=== PATIENT | female | born 1935 | race Caucasian/White ===

== ENCOUNTER → 2016-11-11 | Outpatient (CLI) | payer MEDICARE, OTHER ==
[~2016-11-11] MED LIST: ACT35T PO; CALC-793 PO; FLUT16SP22 NS; OLME40TA14 PO; OMEP20TA2 PO; PNT40TEC PO; SLOW-MAG64 M1 PO
--- NOTE | 2016-11-11 19:52 | Diagnostic Imaging Report ---
Bilateral screening mammogram The current study was also evaluated with a Computer Aided Detection (CAD) system. Indication: Screening. No current complaints stated on the questionnaire. COMPARISON: 11/05/15. FINDINGS: The breasts are composed of heterogeneously dense parenchyma which may decrease mammographic sensitivity. Scattered benign-appearing calcifications seen. Allowing for technique and positional differences, no suspicious change is seen. IMPRESSION: Dense breasts with no definite change. ACR BI-RADS Category 2: Benign findings. Result letter will be mailed to the patient. Note: At least 10% of breast cancer is not imaged by mammography. Dictated by: Dictated on workstation # [id number]
== END ==
LOC: RAD 09:15
PROVIDERS: ATTEND Internal Medicine
DX: Z12.31 Encounter for screening mammogram for malignant neoplasm of breast (principal)
CPT/HCPCS: 77067

== ENCOUNTER → 2016-11-27 | Outpatient (CLI) | payer MEDICARE, OTHER ==
[~2016-11-27] VITALS: Ht 152.4 cm; Wt 48.3 kg
[~2016-11-27] MED LIST changes: +DENOSUMAB 60 MG/1 ML (PROLIA) SQ ONE
[2016-11-27 09:25] VITALS: BP 139/67
== END ==
LOC: SDC 09:01
PROVIDERS: ATTEND Internal Medicine
DX: M81.0 Age-related osteoporosis without current pathological fracture (principal)
CPT/HCPCS: 96372

== ENCOUNTER → 2017-05-28 | Outpatient (CLI) | payer MEDICARE, OTHER ==
[~2017-05-28] VITALS: Ht 152.4 cm; Wt 48.3 kg
[~2017-05-28] MED LIST changes: +DENOSUMAB 60 MG/1 ML (PROLIA) SQ NR; -DENOSUMAB 60 MG/1 ML (PROLIA) SQ ONE
[2017-05-28 15:16] VITALS: BP 160/66
== END ==
LOC: SDC 13:14
PROVIDERS: ATTEND Internal Medicine
DX: M81.0 Age-related osteoporosis without current pathological fracture (principal)
CPT/HCPCS: 96372

== ENCOUNTER → 2017-11-16 | Outpatient (CLI) | payer MEDICARE, OTHER ==
[~2017-11-16] MED LIST changes: -DENOSUMAB 60 MG/1 ML (PROLIA) SQ NR
--- NOTE | 2017-11-16 13:28 | Diagnostic Imaging Report ---
INDICATION: Digital mammogram bilateral screening with 3-D tomosynthesis. This study was compared to the prior exam of 11/11/16, 11/05/15 and 10/30/14. At this time, there are no current complaints. The current study was also evaluated with a Computer Aided Detection (CAD) system. FINDINGS: The fibroglandular tissue in both breasts is dense. This does limit the sensitivity of this exam. Overall, there does not appear to have been any significant change when compared to the prior study. No primary or secondary sign of malignancy is noted. 3D tomographic images fail to show any sign of malignancy. IMPRESSION: There is no radiographic evidence for malignancy. ACR BI-RADS Category 1: Negative. Result letter will be mailed to the patient. Note: At least 10% of breast cancer is not imaged by mammography. Dictated by: Dictated on workstation # [id number]
== END ==
LOC: RAD 09:48
PROVIDERS: ATTEND Internal Medicine
DX: Z12.31 Encounter for screening mammogram for malignant neoplasm of breast (principal)
CPT/HCPCS: 77067

== ENCOUNTER → 2017-11-26 | Outpatient (CLI) | payer MEDICARE, OTHER ==
[~2017-11-26] VITALS: Ht 152.4 cm; Wt 48.3 kg
[~2017-11-26] MED LIST changes: +DENOSUMAB 60 MG/1 ML (PROLIA) SQ ONE
[2017-11-26 13:49] VITALS: BP 141/72
--- NOTE | 2017-12-01 11:10 | Physician Query-Final Dx ---
MIKHAIL SAM 12/01/17 1110: Clinic Account Progress/Dx Physician Query: Please give a diagnosis for the Prolia treatment thank you Date of Service November 26, 2017 at 12:57 STEFANIA MORALES MD 12/03/17 1054: Clinic Account Progress/Dx Physician Query: Please give diagnosis DIAGNOSIS: Diagnosis Osteoporosis MIKHAIL SAM December 01, 2017 11:10 STEFANIA MORALES MD December 03, 2017 10:54
== END ==
LOC: SDC 12:57
PROVIDERS: ATTEND Internal Medicine
DX: M81.0 Age-related osteoporosis without current pathological fracture (principal)
CPT/HCPCS: 96372

== ENCOUNTER → 2018-06-10 | Outpatient (CLI) | payer MEDICARE, OTHER ==
[~2018-06-10] VITALS: Ht 152.4 cm; Wt 48.3 kg
[2018-06-10 13:40] VITALS: BP 150/64
== END | disposition home or self-care (01) ==
LOC: SDC 13:02
PROVIDERS: ATTEND Internal Medicine
DX: M81.0 Age-related osteoporosis without current pathological fracture (principal)
CPT/HCPCS: 96372

== ENCOUNTER → 2018-11-23 | Outpatient (CLI) | payer MEDICARE, OTHER ==
[~2018-11-23] MED LIST changes: -DENOSUMAB 60 MG/1 ML (PROLIA) SQ ONE
--- NOTE | 2018-11-23 15:42 | Diagnostic Imaging Report ---
INDICATION: Routine screening. COMPARISON: 11/16/2017 and 11/11/2016. TECHNIQUE: 2D and 3D bilateral screening mammography was performed with CAD. FINDINGS: Both breasts are heterogeneously dense, limiting the sensitivity of mammography. Benign calcifications are noted. No mass or malignant appearing microcalcifications are seen. The axillae are unremarkable. IMPRESSION: No mammographic features suspicious for malignancy are identified. ACR BI-RADS Category 2: Benign findings. Result letter will be mailed to the patient. Note: At least 10% of breast cancer is not imaged by mammography. Dictated by: Dictated on workstation # [id number]
== END ==
LOC: RAD 11:13
PROVIDERS: ATTEND Internal Medicine
DX: Z12.31 Encounter for screening mammogram for malignant neoplasm of breast (principal)
CPT/HCPCS: 77067

== ENCOUNTER → 2018-12-09 | Outpatient (CLI) | payer MEDICARE, OTHER ==
[~2018-12-09] VITALS: Ht 152.4 cm; Wt 48.3 kg
[~2018-12-09] MED LIST changes: +DENOSUMAB 60 MG/1 ML (PROLIA) SQ ONE
[2018-12-09 13:31] VITALS: BP 173/78
== END ==
LOC: SDC 13:01
PROVIDERS: ATTEND Internal Medicine
DX: M81.0 Age-related osteoporosis without current pathological fracture (principal)
CPT/HCPCS: 96372

== ENCOUNTER 2019-06-12 13:00 | Outpatient (CLI) | payer MEDICARE, OTHER ==
[~2019-06-12] VITALS: Ht 152.4 cm; Wt 48.3 kg
[~2019-06-12 13:00] MED LIST changes: -DENOSUMAB 60 MG/1 ML (PROLIA) SQ ONE
[2019-06-12] MEDS ORDERED: DENOSUMAB 60 MG/1 ML (PROLIA) SQ ONE (13:15)
[2019-06-12 13:24] VITALS: BP 167/74
== END 2019-06-12 13:24 | disposition home or self-care (01) ==
LOC: SDC 13:00
PROVIDERS: ATTEND Internal Medicine
DX: M81.0 Age-related osteoporosis without current pathological fracture (principal)
CPT/HCPCS: 96372

== ENCOUNTER 2019-12-11 12:58 | Outpatient (CLI) | payer MEDICARE, OTHER ==
[2019-12-11 13:06] VITALS: BP 151/88
[2019-12-11] MEDS ORDERED: DENOSUMAB 60 MG/1 ML (PROLIA) SQ ONE (13:15)
== END 2019-12-11 13:16 | disposition home or self-care (01) ==
LOC: SDC 12:58
PROVIDERS: ATTEND Internal Medicine
DX: M81.0 Age-related osteoporosis without current pathological fracture (principal)
CPT/HCPCS: 96372

== ENCOUNTER 2020-02-08 18:21 | Emergency (ER) | payer MEDICARE, OTHER ==
[~2020-02-08] VITALS: Ht 152 cm; Wt 49.0 kg
--- NOTE | 2020-02-08 18:54 | ED Back Pain ---
General Stated Complaint: BACK PAIN History of Present Illness Date Seen by Provider: Feb 08, 2020 Time Seen by Provider: 18:30 Initial Comments 85-year-old female presents for mid back pain on the right that started 02/02/20. She was seen by her primary care provider's office and started on meloxicam. She states her symptoms being transient, pain got worse at 1330 today. She tried a lidocaine patch with no improvement in her symptoms. She denies any falls, injuries, twisting or turning, or lifting anything. No pain or radicular symptoms in LEs. Denies bowel or bladder incontinence or retention. She has chronic scoliosis and osteoporosis. Location: Lumbar Spine, T-Spine (T10 on right) Timing/Duration: 5-6 Days Severity: Moderate (8/10) Pain/Injury Location: None Associated Symptoms: denies symptoms; No numbness in legs/feet, No tingling in legs/feet, No sensory/motor loss; lower back pain; No loss of bladder control, No loss of bowel control Allergies and Home Medications Allergies Coded Allergies: Hydrocodone (Verified Allergy, Unknown, 04/22/10) acetaminophen (Verified Allergy, Unknown, 04/22/10) Home Medications Calcium/Vitamin D 1 Each Tablet, 1 EACH PO DAILY, (Reported) Fluticasone Propionate 16 Gm Naspr, 16 GM NS BID PRN, (Reported) 50 MCG Olmesartan Medoxomil 40 Mg Tablet, 40 MG PO DAILY, (Reported) Pantoprazole Sodium 40 Mg Tablet.dr, 1 TAB PO DAILY, (Reported) Patient Home Medication List Home Medication List Reviewed: Yes Review of Systems Constitutional: no symptoms reported, see HPI Musculoskeletal: see HPI, back pain (T and L Spine on right) Past Pugqlnf-Tusuuj-Norhxl Hx Past Med/Social Hx: Reviewed and Corrections made Patient Social History Alcohol Use: Rarely Uses Alcohol Beverage of Choice: Wine Recreational Drug Use: No Recent Foreign Travel: No Contact w/Someone Who Travel: No Recent Hopitalizations: Yes Immunizations Up To Date Date of Pneumonia Vaccine: Aug 04, 2012 Past Medical History Reproductive Disorders: No Physical Exam Vital Signs Vital Signs - First Documented 02/08/20 18:58 Temp 36.7 Pulse 78 Resp 18 B/P (MAP) 183/110 (134) Pulse Ox 95 O2 Delivery Room Air Capillary Refill : Height, Weight, BMI Height: 5'0.00" Weight: 106lbs. 8.0oz. 48.939045ql; 20.8 BMI Method:Stated General Appearance: No Apparent Distress, WD/WN Neck: Full Range of Motion, Normal Inspection, Non Tender, Supple Cardiovascular: Regular Rate, Rhythm, No Edema, No Murmur, Normal Peripheral Pulses Respiratory: Chest Non Tender, Lungs Clear, Normal Breath Sounds Gastrointestinal: Normal Bowel Sounds, Non Tender, Soft Back: Decreased Range of Motion, Muscle Spasm, Vertebral Tenderness (T10 right. ), Other (Marked T and L Scoliosis, right scapula prominent. ) Extremity: Normal Capillary Refill, Normal Inspection, Normal Range of Motion Neurologic/Psychiatric: Alert, Oriented x3, No Motor/Sensory Deficits, Normal Mood/Affect Skin: Normal Color, Warm/Dry Progress/Results/Core Measures Results/Orders My Orders Orders - LEVY LAY Tramadol Tablet (Ultram Tablet) (02/08/20 18:45) Thoracic Spine, 2 Views Only (02/08/20 18:44) Lumbar Spine - 2-3 Views (02/08/20 18:44) Rx-Tramadol Hcl (Rx-Ultram) (02/08/20 20:17) Medications Given in ED Current Medications Medications Dose Ordered Sig/Devora Route Start Time Stop Time Status Last Admin Dose Admin Tramadol HCl 50 mg ONCE ONCE PO 02/08/20 18:45 02/08/20 18:46 DC 02/08/20 19:35 50 MG Vital Signs/I&O 02/08/20 02/08/20 18:58 20:30 Temp 36.7 36.8 Pulse 78 67 Resp 18 20 B/P (MAP) 183/110 (134) 174/85 Pulse Ox 95 100 O2 Delivery Room Air Room Air Progress Progress Note : Time: 18:30 Progress Note Patient seen and evaluated, will obtain x-rays of the thoracic and lumbar spine. Tramadol for pain. 1914 Patient reports improvement in pain. Warm blanket to low back. 1999 Xray results reviewed with patient. Discharge instructions and return precautions reviewed. All questions answered. Diagnostic Imaging Diagonstic Imaging: Xray Plain Films/CT/US/NM/MRI: other (T and L Spine) Comments NAME: MARYAMYOMAR Vargas MED REC#: [id number] PT STATUS: REG ER : 1935 PHYSICIAN: LEVY LAY ADMIT DATE: 02/08/20/ER Draft Date of Exam:02/08/20 LUMBAR SPINE - 2-3 VIEWS CLINICAL INDICATION: Patient with right-sided mid to lower back pain. Patient has scoliosis with constant ache, but states this pain is different. EXAMS: 1: X-ray of the thoracic spine, 2 views. 2: X-ray of the lumbar spine, 2 views. COMPARISON: X-ray of the right hip dated 04/16/2011. FINDINGS: There are multiple air-filled loops of intestine overlying the lumbar spine limiting evaluation of bony detail. There is osteopenia involving the thoracic and lumbar spine. There is grossly 81 degrees of levorotoscoliosis of the thoracolumbar spine. There is associated hypertrophic spurs and facet arthropathy involving the lumbar spine. There is also kyphosis of the thoracolumbar spine region as well. There is loss of height involving the L2-L3 vertebra associated with the scoliosis. The lateral view of the thoracic spine is limited by overlying anatomical structures and scoliosis. Air-filled hiatal hernia is noted. There are degenerative spurs involving the thoracic spine. There is no definite acute fracture of the thoracic spine, but evaluation is limited. IMPRESSION: 1: Very limited evaluation of the thoracic and lumbar spine due to overlapping anatomical structures, osteopenia, and severe kypho levorotoscoliosis of the thoracolumbar spine. 2: Although there is no gross acute fracture seen, it cannot be excluded given the limitations of these exams. If there is continued concern for fracture, MRI of the thoracic and lumbar spine would better evaluate for acute fracture given the osteopenia. 3: There appears to be loss of height involving the L2 and L3 vertebra associated with the scoliosis, but this may be chronic. Dictated on workstation # [id number] Dict: 02/08/201929 Trans: 02/08/20 194 [facility] [id number] Interpreted by: TA DUNHAM MD Electronically signed by: Reviewed: Reviewed by Me Departure Impression Primary Impression: Thoracic back pain Qualified Codes: M54.6 - Pain in thoracic spine Additional Impression: Scoliosis Qualified Codes: M41.9 - Scoliosis, unspecified Disposition: 01 HOME, SELF-CARE Condition: Improved Departure-Patient Inst. Decision time for Depature: 20:00 Referrals: STEFANIA WALSH MD (PCP/Family) Primary Care Physician Patient Instructions: Low Back Pain (DC) Add. Discharge Instructions: Alternate heat and ice to your low back as needed. Take the tramadol 1 tablet every 8 hours as needed for pain. Continue to take your home medications. Follow-up with Dr. Walsh to schedule an MRI of your back. Return to the emergency department for new, urgent health care needs. Copy Copies To 1: STEFANIA WALSH MD, AMY ARNP Feb 08, 2020 18:54
--- NOTE | 2020-02-08 19:43 | Diagnostic Imaging Report ---
CLINICAL INDICATION: Patient with right-sided mid to lower back pain. Patient has scoliosis with constant ache, but states this pain is different. EXAMS: 1: X-ray of the thoracic spine, 2 views. 2: X-ray of the lumbar spine, 2 views. COMPARISON: X-ray of the right hip dated 04/16/2011. FINDINGS: There are multiple air-filled loops of intestine overlying the lumbar spine limiting evaluation of bony detail. There is osteopenia involving the thoracic and lumbar spine. There is grossly 81 degrees of levorotoscoliosis of the thoracolumbar spine. There is associated hypertrophic spurs and facet arthropathy involving the lumbar spine. There is also kyphosis of the thoracolumbar spine region as well. There is loss of height involving the L2-L3 vertebra associated with the scoliosis. The lateral view of the thoracic spine is limited by overlying anatomical structures and scoliosis. Air-filled hiatal hernia is noted. There are degenerative spurs involving the thoracic spine. There is no definite acute fracture of the thoracic spine, but evaluation is limited. IMPRESSION: 1: Very limited evaluation of the thoracic and lumbar spine due to overlapping anatomical structures, osteopenia, and severe kypho levorotoscoliosis of the thoracolumbar spine. 2: Although there is no gross acute fracture seen, it cannot be excluded given the limitations of these exams. If there is continued concern for fracture, MRI of the thoracic and lumbar spine would better evaluate for acute fracture given the osteopenia. 3: There appears to be loss of height involving the L2 and L3 vertebra associated with the scoliosis, but this may be chronic. Dictated by: Dictated on workstation # [id number]
--- OUTSIDE RECORDS SUMMARY | 2020-02-08 20:09 | XMS REPORT ---
Author Author Phobious head bucker ONE [facility] Phobious banner [facility] ONE [facility] Address [address] [address] Care Team Providers Care Ambulance Paramedic Name Role Phone ROBERTO YOUNG Unavailable Unavailable ROBERTO YOUNG Unavailable STEFANIA MORALES MD Unavailable Unavailable PCP, NONE Unavailable Unavailable STEFANIA MORALES MD Unavailable Unavailable STEFANIA MORALES PCP Unavailable Unavailable Unavailable Unavailable Unavailable Unavailable Unavailable Unavailable Unavailable Unavailable Allergies The data below is from unstructured sourcesNo Known Allergies No Information No Information Encounters Encounter Date Encounter Type Encounter Diagnosis Care Provider Facility Start: Patient encounter STEFANIA MORALES MD [facility] 12-11-2019 [facility] End: 12-11-2019 Start: Patient encounter STEFANIA MORALES MD [place] [facility] 06-12-2019 [facility] End: 06-12-2019 Start: Patient encounter NONE PCP [facility] 04-12-2019 procedure [facility] ([id number]) Start: Patient encounter STEFANIA MORALES MD [facility] 12-09-2018 [facility] ([id number]) Start: Patient encounter STEFANIA MORALES MD [facility] 12-09-2018 [facility] ([id number]) Start: Patient encounter STEFANIA MORALES MD [facility] 11-23-2018 [facility] ([id number]) Start: Patient encounter NONE PCP [facility] 11-10-2018 procedure [facility] ([id number]) Start: Patient encounter NONE PCP [facility] 09-06-2018 [facility] ([id number]) Start: Patient encounter STEFANIA MORALES MD [facility] ([id number]) 06-10-2018 procedure Start: [facility] Encounter for ROBERTO YOUNG [facility] 04-20-2018 immunization Start: Patient encounter STEFANIA MORALES MD [facility] ([id number]) 11-26-2017 procedure Start: Patient encounter 11-16-2017 procedure Start: Patient encounter STEFANIA MORALES MD [facility] ([id number]) 05-28-2017 procedure Start: [facility] Encounter for ROBERTO YOUNG [facility] 04-19-2017 immunization Start: Patient encounter STEFANIA MORALES MD [facility] ([id number]) 11-27-2016 procedure Start: Patient encounter STEFANIA MORALES MD [facility] ([id number]) 11-11-2016 procedure Start: Patient encounter STEFANIA MORALES MD [facility] ([id number]) 05-29-2016 procedure Start: Patient encounter STEFANIA MORALES MD [facility] ([id number]) 11-27-2015 procedure Start: Patient encounter STEFANIA MORALES MD [facility] ([id number]) 11-05-2015 procedure Start: Patient encounter STEFANIA MORALES MD [facility] ([id number]) 05-29-2015 procedure Start: [facility] Encounter for ROBERTO YOUNG [facility] 05-01-2015 immunization Start: Patient encounter STEFANIA MORALES MD [facility] ([id number]) 11-27-2014 procedure Start: Patient encounter STEFANIA MORALES MD [facility] (20430) 10-30-2014 procedure Start: Patient encounter STEFANIA MORALES MD [facility] (98706) 05-29-2014 procedure Patient encounter NA NA Not Available (0000 0) procedure Medical Equipment The data below is from unstructured sourcesNo Medical Equipment Information available Goals Date Patient Goal Desired Activity/St ate Immunizations Immunizatio Immunization Notes Care Provider Facility n Date 04-12-2019 influenza, seasonal, NA [facility] (25306) 11-10-2018 zoster vaccine NA NA [facility] recombinant [facility] (98837) 09-06-2018 zoster vaccine NA NA [facility] recombinant [facility] (05883) 04-20-2018 influenza, seasonal, NA NA [facility] ; [facility] - Translations: [[facility] IMMUNIZATION ADMIN] ([id number]) 04-20-2018 influenza, injectable, ROBERTO YOUNG [facility] quadrivalent, Other Phone: [facility] preservative free [place] ([id number]) 05-28-2017 STEFANIA MORALES [place] [facility] Work Phone: Hospital ([id number]) 04-19-2017 influenza, injectable, NA NA Not [facility] (55254) quadrivalent, preservative free Interventions No Information Medications Medication Drug Dates Sig Sig (Original) Class(es) (Normalized) Calcium Citrate / Calcium/Vitamin D Active 1 ORAL Daily Vitamin D (1 source) Payers Date Payer Normalized Payer [id number] Plan of Treatment No Information Problems Problem Problem Date Last Documented Episodic/Chr Provider Classificati Recorded Date onic on Osteoporosis Age-related osteoporosis without Chronic STEFANIA MORALES (22 sources) current pathological fracture ; MD Translations: [Osteoporosis, unspecified] Other Encounter for screening mammogram Episodic STEFANIA MORALES screening for malignant neoplasm of breast ; MD for Translations: [Other screen ing suspected mammogram] conditions (not mental disorders or infectious disease) (11 sources) Procedures The data below is from unstructured sources Procedure Coding System Code Date SINGLE IMMUNIZATION ADMIN CPT-4 68814 May 01, 2015 PCV 13 CPT-4 48520 May 01, 2015 Procedure Date Ordered R esult Body Site FLULAVAL QUAD 0.5ML (6 MO AND UP) 2017Apr 20, 2018 SINGLE IMMUNIZATION ADMIN Apr 20, 2018 No procedure information available. Results The data below is from unstructured sourcesNo Known Results No Results No ResultsNo known relevant diagnostic tests and/or laboratory data.No known relevant diagnostic tests and/or laboratory data. Social History Date Type Detail Facility Start: No [place] [facility] 06-12-2019 [facility] ([id number]) Start: Yes [place] [facility] 05-28-2017 [facility] ([id number]) Start: Sex Assigned At Female [facility] 1935 [facility] ([id number]) Unknown if ever smoked [facility] ([id number]) Vital Signs The data below is from unstructured sources Vital Reading Result Col lection Date/Time Functional Status The data below is from unstructured sourcesNo Functional Status information available Mental Status The data below is from unstructured sourcesNo Mental Status Information Available Evaluation note Note Date & Note Facility Type Evaluation No Assessments Information Available [facility] Via note [facility] ([id number]) Summary Purpose eClinicalWorks Submission Advance Directives Directive Response Recor ded Date Advance Directives Y 8:39am Health Care Power of Audio Recording Engineer Y JAD Y DAUGHTER 12/02/12 8:39am Organ Donor N 12/02/12 8 :39am Advance Directive Response Recorded Date/Time Advance Directives Yes N ov2016 3:19pm Health Care Power of Audio Recording Engineer Y - KE LLY DAUGHTER May 28, 2017 3:19pm Organ Donor No May 28, 2017 3:19pm Additional Source Comments This clinical document has been generated using Medypal software that has been certified by the Office of the National Coordinator for Health Information Technology (ONC 15.99.04.3023.Diam.[id number]) and the National Committee for Us Administrative Law Judge (NCQA, as an eMeasure certified technology). FOR RECORDS PERTAINING TO PATIENTS WHO ARE OR HAVE BEEN ENROLLED IN A CHEMICAL D EPENDENCY/SUBSTANCE ABUSE PROGRAM, SOME INFORMATION MAY BE OMITTED. This clinica l summary was aggregated from multiple sources. Caution should be exercised in using it in the provision of clinical care. This summary normalizes information from multiple sources, and as a consequence, information in this document may ma terially change the coding, format and clinical context of patient data. In quinton tion, data may be omitted in some cases. CLINICAL DECISIONS SHOULD BE BASED ON T HE PRIMARY CLINICAL RECORDS. [employer] provides no warranty or guara ntee of the accuracy or completeness of information in this document.The followi ng information is based on time limited clinical information UNRECOGNIZED CONTENT PROVIDED BELOW FOR UNRECOGNIZED SECTION REASON FOR VISIT Flu shot
--- OUTSIDE RECORDS SUMMARY | 2020-02-08 20:09 | XMS REPORT ---
Author Author Madeleine YOUNG Organization [facility] Address [address] [place] [address] Care Team Providers Care Cement Mason Apprentice Name Role Phone ROBERTO YOUNG Unavailable PROBLEMS Unknown Problems ALLERGIES No Information ENCOUNTERS Encounter Location Date Diagnosis [facility] [address] [facility] [id number] [address] [place] [id number] Apr, Encounter for immunization Z 23 [facility] [address] [facility] [id number] [address] [place] [phone] Apr, Encounter for immunization Z 23 IMMUNIZATIONS Vaccine Route Administration Date Status FLUARIX QUAD (3 AND UP) 2016 IM Intramuscular Apr 19, 2017 Ad ministered SOCIAL HISTORY Never Assessed REASON FOR VISIT FLU SHOT---[place],[facility] PLAN OF CARE Activity Details Follow Up prn Reason: VITAL SIGNS MEDICATIONS No Known Medications RESULTS No Results PROCEDURES Procedure Date Ordered Result Body Site FLUARIX QUAD (3 & UP)-GSK-2015 Apr 19, 2017 SINGLE IMMUNIZATION ADMIN Apr 19, 2017 INSTRUCTIONS MEDICATIONS ADMINISTERED No Known Medications
--- OUTSIDE RECORDS SUMMARY | 2020-02-08 20:09 | XMS REPORT ---
Author Author Madeleine YOUNG Organization [facility] Address [address] [place] [address] Care Team Providers Care Gericare Aide Teacher Name Role Phone ROBERTO YOUNG Unavailable PROBLEMS Unknown Problems ALLERGIES No Information ENCOUNTERS Encounter Location Date Diagnosis [facility] [address] [facility] [id number] [address] [place] [phone] Apr, Encounter for immunization Z 23 [facility] [address] [facility] [id number] [address] [place] [id number] Apr, Encounter for immunization Z 23 [place] [address] [address] [facility] [id number] [address] [place] [phone] Apr, Encounter for immunization Z 23 IMMUNIZATIONS Vaccine Route Administration Date Status FLULAVAL QUAD 0.5ML (6 MO & UP) 2017 IM Intramuscular Apr 20 18 Administered SOCIAL HISTORY Never Assessed REASON FOR VISIT Flu shot PLAN OF CARE VITAL SIGNS MEDICATIONS Unknown Medications RESULTS No Results PROCEDURES Procedure Date Ordered Result Body Site FLULAVAL QUAD 0.5ML (6 MO AND UP) 2017Apr 20, 2018 SINGLE IMMUNIZATION ADMIN Apr 20, 2018 INSTRUCTIONS MEDICATIONS ADMINISTERED No Known Medications
--- OUTSIDE RECORDS SUMMARY | 2020-02-08 20:09 | XMS REPORT | Continuity of Care Document ---
Author Organization Unknown Address Unknown Phone Unavailable Allergies Active Description Code Type Severity Reaction Onset Reported/Identified Relationship to Patient Clinical Status Yes acetaminophen [id number] Justice g Allergy Unknown N/A 04/22/2010 Yes hydrocodone [id number] Drug Aller gy Unknown N/A 04/22/2010 Medications There is no data. Problems Date Dx Coded Attending Type Code Diagnosis Diagnosed By 12/02/2012 ANDREW LAMB, STEFANIA Rollins Ot 536. 8 STOMACH FUNCTION DIS NEC 12/02/2012 STEFANIA MORALES MD Ot 553. 3 DIAPHRAGMATIC HERNIA 06/25/2014 STEFANIA MORALES MD Ot 733. 00 11/30/2014 STEFANIA MORALES MD Ot V76. 12 12/20/2014 STEFANIA MORALES MD Ot 733. 00 01/18/2015 STEFANIA MORALES MD Ot 733. 00 01/24/2015 STEFANIA MORALES MD Ot 733. 00 06/21/2015 STEFANIA MORALES MD Ot M81. 0 06/27/2015 STEFANIA MORALES MD Ot M81. 0 10/28/2015 STEFANIA MORALES MD Ot 733. 00 OSTEOPOROSIS NOS 11/05/2015 STEFANIA MORALES MD Ot V76. 12 OTH SCREEN MAMMO-MALIGN NEOPLASM OF UDAY 11/05/2015 STEFANIA MORALES MD Ot 733. 00 OSTEOPOROSIS NOS 11/05/2015 STEFANIA MORALES MD Ot 733. 00 OSTEOPOROSIS NOS 11/05/2015 STEFANIA MORALES MD Ot 733. 00 OSTEOPOROSIS NOS 11/05/2015 STEFANIA MORALES MD Ot V76. 12 OTH SCREEN MAMMO-MALIGN NEOPLASM OF UDAY 11/05/2015 STEFANIA MORALES MD Ot M81. 0 AGE-RELATED OSTEOPOROSIS W/O CURRENT PAT 11/05/2015 Ot V76.12 OTH SCREEN MAMMO- MALIGN NEOPLASM OF UDAY 11/05/2015 Ot 719.45 FARZAD NT PAIN-PELVIS 11/05/2015 Ot V76.12 OTH SCREEN MAMMO- MALIGN NEOPLASM OF UDAY 11/05/2015 Ot V76.12 OTH SCREEN MAMMO- MALIGN NEOPLASM OF UDAY 11/05/2015 ANDREW LAMB, STEFANIA Rollins Ot 733. 00 OSTEOPOROSIS NOS 11/05/2015 ANDREW LAMB, STEFANIA Rollins Ot 733. 90 BONE CARTILAGE DIS NOS 11/05/2015 ANDREW LAMB, STEFANIA Rollins Ot V72. 84 EXAM PRE-OPERATIVE NOS 11/05/2015 ANDREW LAMB, STEFANIA Rollins Ot 733. 90 BONE CARTILAGE DIS NOS 11/05/2015 ANDREW LAMB, STEFANIA Rollins Ot V76. 12 OTH SCREEN MAMMO-MALIGN NEOPLASM OF UDAY 11/05/2015 ANDREW LAMB, STEFANIA Rollins Ot 733. 00 OSTEOPOROSIS NOS 11/05/2015 ANDREW LAMB, STEFANIA Rollins Ot 733. 00 OSTEOPOROSIS NOS 11/05/2015 ANDREW LAMB, STEFANIA Rollins Ot 733. 00 OSTEOPOROSIS NOS 11/05/2015 STEFANIA MORALES MD Ot V76. 12 OTH SCREEN MAMMO-MALIGN NEOPLASM OF UDAY 11/05/2015 STEFANIA MORALES MD Ot M81. 0 AGE-RELATED OSTEOPOROSIS W/O CURRENT PAT 11/05/2015 STEFANIA MORALES MD Ot M81. 0 AGE-RELATED OSTEOPOROSIS W/O CURRENT PAT 11/06/2015 Ot Z12.31 ENC NTR SCREEN MAMMOGRAM FOR MALIGNANT NE 11/27/2015 STEFANIA MORALES MD Ot M81. 0 AGE-RELATED OSTEOPOROSIS W/O CURRENT PAT 11/27/2015 Ot Z12.31 ENC NTR SCREEN MAMMOGRAM FOR MALIGNANT NE 11/27/2015 STEFANIA MORALES MD Ot M81. 0 AGE-RELATED OSTEOPOROSIS W/O CURRENT PAT 12/26/2015 STEFANIA MORALES MD Ot M81. 0 AGE-RELATED OSTEOPOROSIS W/O CURRENT PAT 01/04/2016 STEFANIA MORALES MD Ot M81. 0 AGE-RELATED OSTEOPOROSIS W/O CURRENT PAT 05/29/2016 Ot 719.45 FARZAD NT PAIN-PELVIS 05/29/2016 Ot V76.12 OTH SCREEN MAMMO- MALIGN NEOPLASM OF UDAY 05/29/2016 Ot V76.12 OTH SCREEN MAMMO- MALIGN NEOPLASM OF UDAY 05/29/2016 STEFANIA MORALES MD Ot 733. 00 OSTEOPOROSIS NOS 05/29/2016 ANDREW LAMB, STEFANIA Rollins Ot 733. 90 BONE CARTILAGE DIS NOS 05/29/2016 ANDREW LAMB, STEFANIA Rollins Ot V72. 84 EXAM PRE-OPERATIVE NOS 05/29/2016 ANDREW LAMB, STEFANIA Rollins Ot 733. 90 BONE CARTILAGE DIS NOS 05/29/2016 ANDREW LAMB, STEFANIA Rollins Ot V76. 12 OTH SCREEN MAMMO-MALIGN NEOPLASM OF UDAY 05/29/2016 ANDREW LAMB, STEFANIA Rollins Ot 733. 00 OSTEOPOROSIS NOS 05/29/2016 ANDREW LAMB, STEFANIA Rollins Ot 733. 00 OSTEOPOROSIS NOS 05/29/2016 ANDREW LAMB, STEFANIA Rollins Ot 733. 00 OSTEOPOROSIS NOS 05/29/2016 STEFANIA MORALES MD Ot V76. 12 OTH SCREEN MAMMO-MALIGN NEOPLASM OF UDAY 05/29/2016 STEFANIA MORALES MD Ot M81. 0 AGE-RELATED OSTEOPOROSIS W/O CURRENT PAT 05/29/2016 Ot Z12.31 ENC NTR SCREEN MAMMOGRAM FOR MALIGNANT NE 05/29/2016 STEFANIA MORALES MD Ot M81. 0 AGE-RELATED OSTEOPOROSIS W/O CURRENT PAT 06/09/2016 STEFANIA MORALES MD Ot M81. 0 AGE-RELATED OSTEOPOROSIS W/O CURRENT PAT 06/26/2016 STEFANIA MORALES MD Ot M81. 0 AGE-RELATED OSTEOPOROSIS W/O CURRENT PAT 07/10/2016 STEFANIA MORALES MD Ot M81. 0 AGE-RELATED OSTEOPOROSIS W/O CURRENT PAT 11/10/2016 STEFANIA MORALES MD Ot V76. 12 OTH SCREEN MAMMO-MALIGN NEOPLASM OF UDAY 11/10/2016 STEFANIA MORALES MD Ot 733. 00 OSTEOPOROSIS NOS 11/10/2016 ANDREW LAMB, STEFANIA Rollins Ot 733. 00 OSTEOPOROSIS NOS 11/10/2016 STEFANIA MORALES MD Ot 733. 00 OSTEOPOROSIS NOS 11/10/2016 STEFANIA MORALES MD Ot V76. 12 OTH SCREEN MAMMO-MALIGN NEOPLASM OF UDAY 11/10/2016 STEFANIA MORALES MD Ot M81. 0 AGE-RELATED OSTEOPOROSIS W/O CURRENT PAT 11/10/2016 Ot Z12.31 ENC NTR SCREEN MAMMOGRAM FOR MALIGNANT NE 11/10/2016 STEFANIA MORALES MD Ot M81. 0 AGE-RELATED OSTEOPOROSIS W/O CURRENT PAT 11/10/2016 STEFANIA MORALES MD Ot M81. 0 AGE-RELATED OSTEOPOROSIS W/O CURRENT PAT 11/10/2016 STEFANIA MORALES MD Ot Z12. 31 ENCNTR SCREEN MAMMOGRAM FOR MALIGNANT NE 11/10/2016 ANDREW LAMB, STEFANIA Rollins Ot M81. 0 AGE-RELATED OSTEOPOROSIS W/O CURRENT PAT 11/11/2016 ANDREW LAMB, STEFANIA Rollins Ot Z12. 31 ENCNTR SCREEN MAMMOGRAM FOR MALIGNANT NE 11/11/2016 ANDREW LAMB, STEFANIA Rollins Ot Z12. 31 ENCNTR SCREEN MAMMOGRAM FOR MALIGNANT NE 11/11/2016 STEFANIA MORALES MD Ot Z12. 31 ENCNTR SCREEN MAMMOGRAM FOR MALIGNANT NE 11/12/2016 ANDREW LAMB, STEFANIA Rollins Ot Z12. 31 ENCNTR SCREEN MAMMOGRAM FOR MALIGNANT NE 12/02/2016 ANDREW LAMB, STEFANIA Rollins Ot Z12. 31 ENCNTR SCREEN MAMMOGRAM FOR MALIGNANT NE 12/09/2016 STEFANIA MORALES MD Ot M81. 0 AGE-RELATED OSTEOPOROSIS W/O CURRENT PAT 12/15/2016 STEFANIA MORALES MD Ot M81. 0 AGE-RELATED OSTEOPOROSIS W/O CURRENT PAT 12/29/2016 STEFANIA MORALES MD Ot M81. 0 AGE-RELATED OSTEOPOROSIS W/O CURRENT PAT 01/06/2017 STEFANIA MORALES MD Ot M81. 0 AGE-RELATED OSTEOPOROSIS W/O CURRENT PAT 06/03/2017 STEFANIA MORALES MD Ot M81. 0 AGE-RELATED OSTEOPOROSIS W/O CURRENT PAT 06/22/2017 STEFANIA MORALES MD Ot M81. 0 AGE-RELATED OSTEOPOROSIS W/O CURRENT PAT 06/30/2017 STEFANIA MORALES MD Ot M81. 0 AGE-RELATED OSTEOPOROSIS W/O CURRENT PAT 11/17/2017 STEFANIA MORALES MD Ot Z12. 31 ENCNTR SCREEN MAMMOGRAM FOR MALIGNANT NE 11/22/2017 STEFANIA MORALES MD Ot Z12. 31 ENCNTR SCREEN MAMMOGRAM FOR MALIGNANT NE 12/07/2017 STEFANIA MORALES MD Ot M81. 0 AGE-RELATED OSTEOPOROSIS W/O CURRENT PAT 12/08/2017 STEFANIA MORALES MD Ot Z12. 31 ENCNTR SCREEN MAMMOGRAM FOR MALIGNANT NE 12/09/2017 STEFANIA MORALES MD Ot M81. 0 AGE-RELATED OSTEOPOROSIS W/O CURRENT PAT 12/30/2017 STEFANIA MORALES MD Ot M81. 0 AGE-RELATED OSTEOPOROSIS W/O CURRENT PAT 01/05/2018 STEFANIA MORALES MD Ot M81. 0 AGE-RELATED OSTEOPOROSIS W/O CURRENT PAT 04/25/2018 ANDREW LAMB, STEFANIA Rollins Ot M81. 0 AGE-RELATED OSTEOPOROSIS W/O CURRENT PAT 06/10/2018 ANDREW LAMB, STEFANIA Rollins Ot M81. 0 AGE-RELATED OSTEOPOROSIS W/O CURRENT PAT 06/16/2018 ANDREW LAMB, STEFANIA Rollins Ot M81. 0 AGE-RELATED OSTEOPOROSIS W/O CURRENT PAT 07/01/2018 ANDREW LAMB, STEFANIA Rollins Ot M81. 0 AGE-RELATED OSTEOPOROSIS W/O CURRENT PAT 07/07/2018 ANDREW LAMB, STEFANIA Rollins Ot M81. 0 AGE-RELATED OSTEOPOROSIS W/O CURRENT PAT 11/23/2018 ANDREW LAMB, STEFANIA Rollins Ot V76. 12 OTH SCREEN MAMMO-MALIGN NEOPLASM OF UDAY 11/23/2018 ANDREW LAMB, STEFANIA Rollins Ot 733. 00 OSTEOPOROSIS NOS 11/23/2018 ANDREW LAMB, STEFANIA Rollins Ot 733. 00 OSTEOPOROSIS NOS 11/23/2018 ANDREW LAMB, STEFANIA Rollins Ot 733. 00 OSTEOPOROSIS NOS 11/23/2018 ANDREW LAMB, STEFANIA Rollins Ot V76. 12 OTH SCREEN MAMMO-MALIGN NEOPLASM OF UDAY 11/23/2018 ANDREW LAMB, STEFANIA Rollins Ot M81. 0 AGE-RELATED OSTEOPOROSIS W/O CURRENT PAT 11/23/2018 Ot Z12.31 ENC NTR SCREEN MAMMOGRAM FOR MALIGNANT NE 11/23/2018 ANDREW LAMB, STEFANIA Rollins Ot M81. 0 AGE-RELATED OSTEOPOROSIS W/O CURRENT PAT 11/23/2018 ANDREW LAMB, STEFANIA Rollins Ot M81. 0 AGE-RELATED OSTEOPOROSIS W/O CURRENT PAT 11/23/2018 ANDREW LAMB, STEFANIA Rollins Ot Z12. 31 ENCNTR SCREEN MAMMOGRAM FOR MALIGNANT NE 11/23/2018 ANDREW LAMB, STEFANIA Rollins Ot M81. 0 AGE-RELATED OSTEOPOROSIS W/O CURRENT PAT 11/23/2018 ANDREW LAMB, STEFANIA Rollins Ot M81. 0 AGE-RELATED OSTEOPOROSIS W/O CURRENT PAT 11/23/2018 STEFANIA MORALES MD Ot M81. 0 AGE-RELATED OSTEOPOROSIS W/O CURRENT PAT 11/23/2018 STEFANIA MORALES MD Ot Z12. 31 ENCNTR SCREEN MAMMOGRAM FOR MALIGNANT NE 11/23/2018 ANDREW LAMB, STEFANIA Rollins Ot M81. 0 AGE-RELATED OSTEOPOROSIS W/O CURRENT PAT 11/23/2018 STEFANIA MORALES MD Ot Z12. 31 ENCNTR SCREEN MAMMOGRAM FOR MALIGNANT NE 11/24/2018 STEFANIA MORALES MD Ot Z12. 31 ENCNTR SCREEN MAMMOGRAM FOR MALIGNANT NE 12/13/2018 STEFANIA MORALES MD Ot Z12. 31 ENCNTR SCREEN MAMMOGRAM FOR MALIGNANT NE 12/13/2018 STEFANIA MORALES MD Ot M81. 0 AGE-RELATED OSTEOPOROSIS W/O CURRENT PAT 12/15/2018 STEFANIA MORALES MD Ot M81. 0 AGE-RELATED OSTEOPOROSIS W/O CURRENT PAT 01/02/2019 STEFANIA MORALES MD Ot M81. 0 AGE-RELATED OSTEOPOROSIS W/O CURRENT PAT 01/13/2019 STEFANIA MORALES MD Ot M81. 0 AGE-RELATED OSTEOPOROSIS W/O CURRENT PAT 06/13/2019 STEFANIA MORALES MD, Ot M81. 0 AGE-RELATED OSTEOPOROSIS W/O CURRENT PAT Procedures There is no data. Results There is no data. Encounters ACCT No. Visit Date/Time Discharge Status Pt. Type Provider Facility Loc./Unit Complaint [id number] 07/09/2014 11:47:49 07/09/2014 23:59: 59 CLS Outpatient Сергей Tavarez [id number] 05/15/2014 09:32:50 05/15/2014 23:59: 59 CLS Outpatient Сергей Tavarez [id number] 04/17/2014 14:26:24 04/17/2014 23:59: 59 CLS Outpatient Сергей Tavarez [id number] 12/11/2019 12:58:00 13:16:00 DIS Outpatient STEFANIA MORALES MD [facility] OSTEOPOROSIS [id number] 06/12/2019 13:00:00 019 13:24:00 DIS Outpatient STEFANIA MORALES MD [facility] OSTEOPOROSIS [id number] 12/09/2018 13:01:00 019 23:59:59 CLS Outpatient STEFANIA MORALES MD [facility] OSTEOPOROSIS [id number] 11/23/2018 11:13:00 23:59:59 CLS Outpatient STEFANIA MORALES MD [facility] RAD SCREENING [id number] 06/10/2018 13:02:00 018 23:59:59 CLS Outpatient STEFANIA MORALES MD [facility] OSTEOPOROSIS [id number] 11/26/2017 12:57:00 018 23:59:59 CLS Outpatient STEFANIA MORALES MD [facility] OSTEOPOROSIS [id number] 11/16/2017 09:48:00 018 23:59:59 CLS Outpatient STEFANIA MORALES MD [facility] RAD SCREENING [id number] 05/28/2017 13:14:00 017 23:59:59 CLS Outpatient STEFANIA MORALES MD [facility] OSTEOPOIOSIS [id number] 11/27/2016 09:01:00 017 23:59:59 CLS Outpatient STEFANIA MORALES MD [facility] OSTEOPORSIS [id number] 11/11/2016 09:15:00 017 23:59:59 CLS Outpatient STEFANIA MORALES MD [facility] RAD Z12.31 [id number] 05/29/2016 12:55:00 016 23:59:59 CLS Outpatient STEFANIA MORALES MD [facility] OSTERPOROSIS [id number] 11/27/2015 13:03:00 016 23:59:59 CLS Outpatient STEFANIA MORALES MD [facility] OSTEOPOROSIS [id number] 05/29/2015 12:42:00 015 23:59:59 CLS Outpatient STEFANIA MORALES MD [facility] OSTEOPOROSIS [id number] 11/27/2014 12:44:00 015 23:59:59 CLS Outpatient STEFANIA MORALES MD [facility] OSTEOPOROSIS [id number] 10/30/2014 09:48:00 015 23:59:59 CLS Outpatient STEFANIA MORALES MD [facility] RAD SCREENING [id number] 05/29/2014 13:05:00 23:59:59 CLS Outpatient STEFANIA MORALES MD [facility] OSTEOPOROSIS [id number] 11/22/2013 12:39:00 23:59:59 CLS Outpatient STEFANIA MORALES MD [facility] OSTEOPOROSIS [id number] 10/10/2013 09:56:00 23:59:59 CLS Outpatient STEFANIA MORALES MD [facility] RAD SCREENING [id number] 05/22/2013 12:53:00 23:59:59 CLS Outpatient STEFANIA MORALES MD [facility] OSTEOPENIA [id number] 12/02/2012 07:22:00 11:25:00 DIS Outpatient STEFANIA MORALES MD [facility] DYSPEPSIA [id number] 11/30/2012 07:20:00 23:59:59 CLS Outpatient STEFANIA MORALES MD [facility] PREOP DYSPEPSIA [id number] 11/21/2012 12:49:00 23:59:59 CLS Outpatient STEFANIA MORALES MD [facility] OSTEOPENIA [id number] 11/11/2012 10:44:00 23:59:59 CLS Outpatient STEFANIA MORALES MD [facility] RAD OSTEOPOROSIS [id number] 11/06/2015 08:42:00 Document Registration [id number] 11/05/2015 09:50:00 Document Registration [id number] 11/05/2015 09:50:00 Document Registration [id number] 10/03/2012 10:46:00 Document Registration [id number] 10/01/2011 09:22:00 Document Registration [id number] 04/16/2011 09:22:00 Document Registration [id number] 09/29/2010 09:18:00 Document Registration [id number] 04/12/2019 14:00:00 04/12/2019 23:59: 59 [facility]
--- OUTSIDE RECORDS SUMMARY | 2020-02-08 20:09 | XMS REPORT ---
Author Author Madeleine YOUNG Organization [employer] Address Unknown Phone Unavailable Care Team Providers Care Procurement Technician Name Role Phone ROBERTO YOUNG CP Unavailable Allergies No Known Allergies Problems Problem Type Condition Code Onset Dates Condition Statu s Assessment Encounter for immunization Z23 A ctive Medications No Known Medications Procedures Procedure Coding System Code Date SINGLE IMMUNIZATION ADMIN CPT-4 12941 Apr PCV 13 CPT-4 50570 May 01, 2015 Results No Known Results Immunizations Vaccine Administration Date PCV May 01, 2015 Summary Purpose [employer] Submission
[2020-02-08] MEDS ORDERED: RX-TRAMADOL 50 MG (ULTRAM) TAB PPK#4 PO STA (20:17)
[2020-02-08 20:30] VITALS: BP 174/85
== END 2020-02-08 20:30 | disposition home or self-care (01) ==
LOC: EDUNIT# 18:21 → ER 18:22
DX: M41.35 Thoracogenic scoliosis, thoracolumbar region (principal); Z88.5 Allergy status to narcotic agent; Z88.6 Allergy status to analgesic agent; Z79.51 Long term (current) use of inhaled steroids
CPT/HCPCS: 72070; 72100

== ENCOUNTER → 2020-06-17 | Outpatient (CLI) | payer MEDICARE, OTHER ==
[~2020-06-17] VITALS: Ht 152.4 cm; Wt 46.4 kg
[~2020-06-17] MED LIST changes: +DENOSUMAB 60 MG/1 ML (PROLIA) SQ ONE
[2020-06-17 13:20] VITALS: BP 147/65
== END ==
LOC: SDC 12:53
PROVIDERS: ATTEND Internal Medicine
DX: M81.0 Age-related osteoporosis without current pathological fracture (principal)
CPT/HCPCS: 96372

== ENCOUNTER 2020-12-23 12:57 | Outpatient (CLI) | payer MEDICARE, OTHER ==
[~2020-12-23] VITALS: Ht 152.4 cm; Wt 46.4 kg
[~2020-12-23 12:57] MED LIST changes: -DENOSUMAB 60 MG/1 ML (PROLIA) SQ ONE
[2020-12-23 13:22] VITALS: BP 165/74
[2020-12-23] MEDS ORDERED: DENOSUMAB 60 MG/1 ML (PROLIA) SQ SCH (13:30)
== END 2020-12-23 13:22 | disposition home or self-care (01) ==
LOC: SDC 12:57
PROVIDERS: ATTEND Internal Medicine
DX: M81.0 Age-related osteoporosis without current pathological fracture (principal)
CPT/HCPCS: 96372

== ENCOUNTER 2021-04-15 12:27 | Outpatient (CLI) | payer MEDICARE, OTHER ==
[~2021-04-15] VITALS: Ht 149 cm; Wt 45.9 kg
[2021-04-15 12:42] VITALS: BP 172/91
[2021-04-15 13:29] LABS: BASOPHILS % (AUTO) 1 % (0-10); EOSINOPHILS # (AUTO) 0.1 10^3/uL (0.0-0.3); EOSINOPHILS % (AUTO) 1 % (0-10); HEMATOCRIT 42 % (35-52); LYMPHOCYTES # (AUTO) 1.8 10^3/uL (1.0-4.0); LYMPHOCYTES % (AUTO) 24 % (12-44); MEAN CORPUSCULAR HEMOGLOBIN 29 pg (25-34); MEAN CORPUSCULAR HGB CONC 34 g/dL (32-36); MEAN CORPUSCULAR VOLUME 85 fL (80-99); MEAN PLATELET VOLUME 9.3 fL (9.0-12.2); MONOCYTES # (AUTO) 0.9 10^3/uL (0.0-1.0); MONOCYTES % (AUTO) 12 % (0-12); NEUTROPHILS # (AUTO) 4.9 10^3/uL (1.8-7.8); NEUTROPHILS % (AUTO) 63 % (42-75); PLATELET COUNT 319 10^3/uL (130-400); WHITE BLOOD COUNT 7.8 10^3/uL (4.3-11.0)
[2021-04-15] MEDS ORDERED: TIMO5DRO5 OU (13:30)
[2021-04-15] MEDS ORDERED: LOSA100T57 PO (13:30)
[2021-04-15] MEDS ORDERED: ALPR0.5T7 PO (13:30)
[2021-04-15] MEDS ORDERED: PANT40TA52 PO (13:30)
[2021-04-15] MEDS ORDERED: NF-MAG64T PO (13:30)
[2021-04-15] MEDS ORDERED: LATA7.5D OU (13:30)
[2021-04-15 13:41] LABS: POTASSIUM 3.8 MMOL/L (3.6-5.0)
[2021-04-15 13:42] LABS: CALCIUM 9.7 MG/DL (8.5-10.1)
[2021-04-15 13:46] LABS: CREATININE SERUM 0.62 MG/DL (0.60-1.30)
== END 2021-04-15 14:21 | disposition home or self-care (01) ==
LOC: PREOP 12:27
PROVIDERS: ATTEND Otolaryngology Otolaryngology/Facial Plastic Surgery
DX: Z01.812 Encounter for preprocedural laboratory examination (principal); Z01.810 Encounter for preprocedural cardiovascular examination; C44.311 Basal cell carcinoma of skin of nose
CPT/HCPCS: 36415; 80048; 85025; 87081; 93005

== ENCOUNTER 2021-04-24 06:48 | Day surgery (SDC) | payer MEDICARE, OTHER ==
[~2021-04-24] VITALS: Ht 149 cm; Wt 45.9 kg
[2021-04-24] VITALS (9 sets, daily range): BP systolic 130–191; BP diastolic 77–97
[~2021-04-24 06:48] MED LIST changes: +ALPR0.5T7 PO; +LATA7.5D OU; +LOSA100T57 PO; +NF-MAG64T PO; +PANT40TA52 PO; +TIMO5DRO5 OU
[2021-04-24] MEDS ORDERED: LACTATED RINGERS 1,000 ML IV PRN (07:00)
[2021-04-24] MEDS ORDERED: LIDOCAINE/EPI 1%-1:100,000 (XYLOCAINE) 20ML ONE (08:18)
[2021-04-24] MEDS ORDERED: LIDOCAINE PF 2% 5 ML (XYLOCAINE) VIAL ONE (09:15)
[2021-04-24] MEDS ORDERED: ONDANSETRON 4 MG/2 ML (SDV) Z0FRAN ONE (09:15)
[2021-04-24] MEDS ORDERED: fentaNYL INJ 100 MCG/2 ML AMP ONE (09:15)
[2021-04-24] MEDS ORDERED: proPOfol 200 MG/20 ML (DIPRIVAN) VIAL IV ONE (09:15)
[2021-04-24] MEDS ORDERED: MUPIROCIN 2% OINT 22 GM (BACTROBAN) TUBE ONE (09:29)
--- NOTE | 2021-04-24 09:38 | Progress Note-Post Operative ---
Post-Operative Progess Note Surgeon (s)/Human Resource Analyst (s) Surgeon TALIA HUNT MD Human Resource Analyst n/a Pre-Operative Diagnosis BCC right nasal ala Post-Operative Diagnosis same Post-Op Procedure Note Date of Procedure: Apr 24, 2021 Name of Procedure Performed: Excision of Right Nasal Alae Lesion, Reconstruction with Full Thickness Skin Graft, Donor Site-Right Pre-auricular region Description & Findings Description and Findings: n/a Anesthesia Type lma Estimated Blood Loss minimal Packing none. Specimen(s) collected/removed right nasal alae lesion for frozen TALIA HUNT MD Apr 24, 2021 09:38
--- NOTE | 2021-04-24 09:39 | Progress Note-Pre Operative ---
Pre-Operative Progress Note H&P Reviewed The H&P was reviewed, patient examined and no changes noted. 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
[2021-04-24] MEDS ORDERED: IBUPROFEN TABLET 200 MG TAB PO PRN (09:45)
[2021-04-24] MEDS ORDERED: SEVOFLURANE (ULTANE) 15 ML INHAL SOLN ONE (09:57)
--- NOTE | 2021-04-24 11:29 | Anesthesia-General Post-Op ---
General Patient Condition Mental Status/LOC: Same as Preop Cardiovascular: Satisfactory Nausea/Vomiting: Absent Respiratory: Satisfactory Pain: Controlled Complications: Absent Post Op Complications Complications None Follow Up Care/Instructions Patient Instructions None needed. Anesthesia/Patient Condition Patient Condition Patient is doing well, no complaints, stable vital signs, no apparent adverse anesthesia problems. No complications reported per nursing. VANNESA AZAR CRNA Apr 24, 2021 11:29
[2021-04-24] MEDS ORDERED: CEPH500T PO (11:51)
== END 2021-04-24 12:10 ==
LOC: SDC 06:48
PROVIDERS: ATTEND Otolaryngology Otolaryngology/Facial Plastic Surgery
DX: C44.311 Basal cell carcinoma of skin of nose (principal); K21.9 Gastro-esophageal reflux disease without esophagitis; I10 Essential (primary) hypertension; Z79.899 Other long term (current) drug therapy
CPT/HCPCS: 87081

== ENCOUNTER 2021-06-30 11:48 | Outpatient (CLI) | payer MEDICARE, OTHER ==
[~2021-06-30 11:48] MED LIST changes: +CEPH500T PO
[2021-06-30 12:12] VITALS: BP 155/79
[2021-06-30] MEDS ORDERED: DENOSUMAB 60 MG/1 ML (PROLIA) SQ SCH (12:15)
== END 2021-06-30 12:16 | disposition home or self-care (01) ==
LOC: SDC 11:48
PROVIDERS: ATTEND Internal Medicine
DX: M81.0 Age-related osteoporosis without current pathological fracture (principal)
CPT/HCPCS: 96372

== ENCOUNTER → 2021-12-19 | Outpatient (CLI) | payer MEDICARE, OTHER ==
[~2021-12-19] VITALS: Ht 152 cm; Wt 46.8 kg
[~2021-12-19] MED LIST changes: +DENOSUMAB 60 MG/1 ML (PROLIA) SQ ONE
[2021-12-19 12:03] VITALS: BP 153/79
== END ==
LOC: SDC 11:10
PROVIDERS: ATTEND Internal Medicine
DX: M81.0 Age-related osteoporosis without current pathological fracture (principal)
CPT/HCPCS: 96372

== ENCOUNTER → 2022-06-30 | Outpatient (CLI) | payer MEDICARE, OTHER ==
[~2022-06-30] VITALS: Wt 46.8 kg
[~2022-06-30] MED LIST changes: -DENOSUMAB 60 MG/1 ML (PROLIA) SQ ONE; +DENOSUMAB 60 MG/1 ML (PROLIA) SQ SCH
[2022-06-30 10:23] VITALS: BP 162/78
== END ==
LOC: SDC 10:03
PROVIDERS: ATTEND Internal Medicine
DX: M81.0 Age-related osteoporosis without current pathological fracture (principal)
CPT/HCPCS: 96372

== ENCOUNTER → 2022-12-29 | Outpatient (CLI) | payer MEDICARE, OTHER ==
[~2022-12-29] MED LIST changes: -LOSA100T57 PO; +LOSA100T58 PO; +TIMO5DRO16 OU; -TIMO5DRO5 OU
[2022-12-29 10:56] VITALS: BP 164/89
== END ==
LOC: SDC 10:11
PROVIDERS: ATTEND Internal Medicine
DX: M81.0 Age-related osteoporosis without current pathological fracture (principal)
CPT/HCPCS: 96372